=== PATIENT | female | born 1950 | race Caucasian/White ===

== ENCOUNTER 2018-08-14 16:08 | Inpatient (IN) | payer MEDICARE, BC ==
[~2018-08-14] VITALS: Ht 160 cm; Wt 68.0 kg
[2018-08-14] VITALS (7 sets, daily range): BP systolic 139–171; BP diastolic 79–93
[~2018-08-14 16:08] MED LIST: HYDR-2966 PO; MUPI22OI28 TP; THYR60TA25 PO; [UNRECOGNIZED DRUG - OTHER]
[2018-08-14] MEDS ORDERED: ENT KIT ONE (16:40)
[2018-08-14 17:15] LABS: PLATELET COUNT, AUTOMATED 293 K/uL (150-450)
[2018-08-14 17:23] LABS: INR 1.02
--- NOTE | 2018-08-14 17:33 | ER Report ---
History and Physical Time Seen By MD: 16:00 Hx. of Stated Complaint: patient reports nosebleed since 6am. Patient reports blood pressure being very erratic. Went to an ENT but they did not do anything becuase of high blood pressure HPI/ROS CHIEF COMPLAINT: Nosebleed HISTORY OF PRESENT ILLNESS: 68 -year-old female comes emergency room with an nosebleed patient did have episodic nosebleeds for the last 6 weeks comes and goes primarily with exertion she has history of hypertension was seen at ENT was unable to get complete resolution she's had several nosebleeds this morning no pain no trauma to the nose no additional complaints REVIEW OF SYSTEMS: Respiratory: No cough, no dyspnea. Cardiovascular: No chest pain, no palpitations. Gastrointestinal: No vomiting, no abdominal pain. Musculoskeletal: No back pain. Remainder of the 14 system rev: Yes Allergies: Uncoded Allergies: antibiotics (Allergy, Mild, 11/24/13) Home Meds Active Scripts Mupirocin (MUPIROCIN) 22 Gm Oint...g., 1 BARTOLO TP BID for 14 Days, #1 TUBE 1 Refill Prov:DARYL HAIR PA-C 06/22/18 Reported Medications [homeopathics] No Conflict Check 11/24/13 Thyroid,Pork (ARMOUR THYROID) 60 Mg Tablet, 75 MG PO 11/24/13 Reviewed Nurses Notes: Yes Old Medical Records Reviewed: Yes Hx Smoking: No Smoking Status: Never Smoker Hx Substance Use Disorder: No Hx Alcohol Use: No Constitutional Vital Sign - Last 24 Hours 08/14/18 16:13 Temp 98.1 Pulse 97 Resp 16 B/P (MAP) 164/93 Pulse Ox 93 O2 Delivery Room Air Physical Exam General Appearance: The patient is alert, has no immediate need for airway protection and no current signs of toxicity. [ ] Eyes: Pupils equal and round no injection. Respiratory: Chest is non tender, lungs are clear to auscultation. Cardiac: regular rate and rhythm [ ] Gastrointestinal: Abdomen is soft and non tender, no masses, bowel sounds normal. Musculoskeletal: Neck: Neck is supple and non tender. Extremities have full range of motion and are non tender. Skin: No rashes or lesions. Nose examination patient has dried blood around the right naris but no active bleeding no other exam findings of note DIFFERENTIAL DIAGNOSIS: After history and physical exam differential diagnosis was considered for nosebleed epistaxis 6 Medical Decision Making Data Points Result Diagram: 08/14/18 1654 08/14/18 1654 Laboratory Hematology Test 08/14/18 16:54 Red Blood Count 2.88 M/uL (4.17-5.56) Mean Corpuscular Volume 82.2 fL (80.0-96.0) Mean Corpuscular Hemoglobin 26.1 pg (26.0-33.0) Mean Corpuscular Hemoglobin Concent 31.8 g/dL (32.0-36.0) Red Cell Distribution Width 16.7 % (11.5-14.5) Mean Platelet Volume 8.5 fL (7.2-11.1) Neutrophils (%) (Auto) 75.4 % (39.4-72.5) Lymphocytes (%) (Auto) 17.1 % (17.6-49.6) Monocytes (%) (Auto) 5.8 % (4.1-12.4) Eosinophils (%) (Auto) 0.4 % (0.4-6.7) Basophils (%) (Auto) 1.3 % (0.3-1.4) Nucleated RBC Relative Count (auto) 0.1 /100WBC Neutrophils # (Auto) 3.1 K/uL (2.0-7.4) Lymphocytes # (Auto) 0.7 K/uL (1.3-3.6) Monocytes # (Auto) 0.2 K/uL (0.3-1.0) Eosinophils # (Auto) 0.0 K/uL (0.0-0.5) Basophils # (Auto) 0.1 K/uL (0.0-0.1) Nucleated RBC Absolute Count (auto) 0.01 K/uL Prothrombin Time 13.4 seconds (12.0-14.4) Prothromb Time International Ratio 1.02 Activated Partial Thromboplast Time 28 seconds (23-35) Sodium Level 137 mmol/L (137-145) Potassium Level 4.5 mmol/L (3.5-5.0) Chloride Level 103 mmol/L (98-107) Carbon Dioxide Level 21 mmol/L (22-31) Blood Urea Nitrogen 8 mg/dl (7-18) Creatinine 1.10 mg/dl (0.52-1.04) Glomerular Filtration Rate Calc 49.1 Random Glucose 132 mg/dl (75-110) Calcium Level 9.8 mg/dl (8.4-10.2) Total Bilirubin 0.7 mg/dl (0.2-1.3) Aspartate Amino Transf (AST/SGOT) 31 U/L (0-35) Alanine Aminotransferase (ALT/SGPT) 30 U/L (0-56) Alkaline Phosphatase 90 U/L (0-126) Total Protein 6.5 g/dl (6.3-8.2) Albumin 3.9 g/dl (3.5-5.0) Chemistry Test 08/14/18 16:54 White Blood Count 4.1 k/uL (4.5-11.0) Red Blood Count 2.88 M/uL (4.17-5.56) Hemoglobin 7.5 g/dL (12.0-16.0) Hematocrit 23.7 % (34.0-47.0) Mean Corpuscular Volume 82.2 fL (80.0-96.0) Mean Corpuscular Hemoglobin 26.1 pg (26.0-33.0) Mean Corpuscular Hemoglobin Concent 31.8 g/dL (32.0-36.0) Red Cell Distribution Width 16.7 % (11.5-14.5) Platelet Count 293 K/uL (150-450) Mean Platelet Volume 8.5 fL (7.2-11.1) Neutrophils (%) (Auto) 75.4 % (39.4-72.5) Lymphocytes (%) (Auto) 17.1 % (17.6-49.6) Monocytes (%) (Auto) 5.8 % (4.1-12.4) Eosinophils (%) (Auto) 0.4 % (0.4-6.7) Basophils (%) (Auto) 1.3 % (0.3-1.4) Nucleated RBC Relative Count (auto) 0.1 /100WBC Neutrophils # (Auto) 3.1 K/uL (2.0-7.4) Lymphocytes # (Auto) 0.7 K/uL (1.3-3.6) Monocytes # (Auto) 0.2 K/uL (0.3-1.0) Eosinophils # (Auto) 0.0 K/uL (0.0-0.5) Basophils # (Auto) 0.1 K/uL (0.0-0.1) Nucleated RBC Absolute Count (auto) 0.01 K/uL Prothrombin Time 13.4 seconds (12.0-14.4) Prothromb Time International Ratio 1.02 Activated Partial Thromboplast Time 28 seconds (23-35) Glomerular Filtration Rate Calc 49.1 Calcium Level 9.8 mg/dl (8.4-10.2) Total Bilirubin 0.7 mg/dl (0.2-1.3) Aspartate Amino Transf (AST/SGOT) 31 U/L (0-35) Alanine Aminotransferase (ALT/SGPT) 30 U/L (0-56) Alkaline Phosphatase 90 U/L (0-126) Total Protein 6.5 g/dl (6.3-8.2) Albumin 3.9 g/dl (3.5-5.0) Coagulation Test 08/14/18 16:54 Prothrombin Time 13.4 seconds Prothromb Time International Ratio 1.02 Activated Partial Thromboplast Time 28 seconds ED Course/Re-evaluation ED Course Patient was able to obtain hemostasis with a direct pressure and Afrin however her hemoglobin came back markedly low at 7.5 she'll be admitted and transfused 2 units of PRBCs and a consult by ENT Decision to Disposition Date: Aug 14, 2018 Decision to Disposition Time: 17:30 Depart Departure Latest Vital Signs Vital Signs Date Time Temp Pulse Resp B/P (MAP) Pulse Ox O2 Delivery O2 Flow Rate FiO2 08/14/18 16:13 98.1 97 16 164/93 93 Room Air Impression: Primary Impression: Anterior epistaxis Additional Impression: Anemia Condition: Improved Disposition: Admitted from ER Problem Qualifiers ISRAEL BLISS MD Aug 14, 2018 17:33
[2018-08-14] MEDS ORDERED: NS(*) 0.9% 1000 ML BAG 1,000 ML IV PRN (20:15)
[2018-08-14] MEDS ORDERED: ACETAMINOPHEN 325 MG TAB PO PRN (20:15)
[2018-08-14] MEDS ORDERED: FLUSH 10 ML SYR IVP PRN (20:15)
--- NOTE | 2018-08-14 20:32 | History & Physical ---
History of Present Illness Chief Complaint Nose bleeds History of Present Illness 68yo female with PMHx significant for elevated BPs, recurrent epistaxis. She states she has had recurring nosebleeds involving the right nares at least once a week for the past 6-7 weeks. Most will last for several hours and be difficult to stop. Over the past week she has had at least three episodes. She has started to have some orthostatic symptoms with dizziness/lightheadedness when she gets up. She has also been noted to have elevated BPs. She reports she has been treated for HTN in the past, but either the meds "didn't work" or she did not tolerate them and she would stop. She has been trying acupuncture for her HTN and feels it has been somewhat effective. She was evaluated in the ER today for a recurrent nose bleed and found to be anemic. She denies any other bleeding sites. No bloody stools. She has noted an occasional dark stool following a nose bleed. History Problems: (1) Hypothyroidism Status: Chronic (2) Recurrent epistaxis Status: Chronic (3) Hypertension Status: Chronic (4) History of hysterectomy Status: Resolved Home Meds Active Scripts Mupirocin (MUPIROCIN) 22 Gm Oint...g., 1 BARTOLO TP BID for 14 Days, #1 TUBE 1 Refill Prov:DARYL HAIR PA-C 06/22/18 Reported Medications [homeopathics] No Conflict Check 11/24/13 Thyroid,Pork (ARMOUR THYROID) 60 Mg Tablet, 75 MG PO 11/24/13 Allergies: Uncoded Allergies: antibiotics (Allergy, Mild, 11/24/13) Patient History: Cardiac disorder FATHER FH: CHF (congestive heart failure) MOTHER FH: kidney disease MOTHER FHx: lung disease FATHER Hx Smoking: No Smoking Status: Never Smoker Hx Alcohol Use: No Hx Substance Use Disorder: No Social Drug Use: Never Review of Systems Constitutional: No Fever, No Chills Neurological: Weakness, Dizziness; No Syncope Eyes: No Loss of Vision ENT: No Hearing Loss Cardiovascular: No Chest Pain, No Palpitations Respiratory: No Shortness of Breath, No Cough Gastrointestinal: No Nausea, No Vomiting, No Hematemesis, No Hematochezia, No Abdominal Pain Exam Vital Signs Vital Signs Date Time Temp Pulse Resp B/P (MAP) Pulse Ox O2 Delivery O2 Flow Rate FiO2 08/14/18 19:50 97.7 166/86 (112) 08/14/18 16:13 97 16 93 Room Air General Appearance: Alert, Awake Neuro: No Gross deficits Eyes: PERRLA ENT: Oropharynx Clear, Other (left nares clear with unremarkable mucosa/right nares with dried blood and some adherent clot on anterior septal area) Neck: No Masses Cardiovascular: Regular Rate and Rhythm Respiratory: Clear to Auscultation GI: Abd Soft and Non-Tender Extremities: Warm, Perfused Integumentary: Skin Intact without Lesion / Mass Psych: Alert & Oriented X3 Medical Decision Making Data Points Result Diagram: 08/14/18 1654 08/14/18 1654 Item Value Date Time Albumin 3.9 g/dl 08/14/18 1654 Total Protein 6.5 g/dl 08/14/18 1654 Alkaline Phosphatase 90 U/L 08/14/18 1654 Alanine Aminotransferase (ALT/SGPT) 30 U/L 08/14/18 1654 Aspartate Amino Transf (AST/SGOT) 31 U/L 08/14/18 1654 Total Bilirubin 0.7 mg/dl 08/14/18 1654 Calcium Level 9.8 mg/dl 08/14/18 1654 Activated Partial Thromboplast Time 28 seconds 08/14/18 1654 Prothromb Time International Ratio 1.02 08/14/18 1654 Prothrombin Time 13.4 seconds 08/14/18 1654 Assessment and Plan Problems: (1) Anemia Status: Acute Assessment & Plan: She appears to have symptomatic anemia, most likely due to recurrent epistaxis. We discussed possible transfusion of 2 units of PRBC and she is willing to proceed as she has been fairly symptomatic, especially these past few days. Will monitor counts. (2) Recurrent epistaxis Status: Chronic Assessment & Plan: At present, it appears sheh as stopped with conservative treatment done in ER. Will watch closely. May need to have ENT see her if recurrent/refractory bleeding. (3) Hypertension Status: Chronic Assessment & Plan: It sounds like she has been hypertensive for many years. She has been resistant or intolerant of medications in the past. She is interested in trying treatment again if she has sustained elevation of her BP. (4) Hypothyroidism Status: Chronic Assessment & Plan: She has not been on treatment for at least several months. Will check TSH. Venous Thromboembolism Antithrombotics Is Pt On Any Antithrombotics?: No (current bleeding) Exam Sepsis Risk: No Definite Risk GARY MARQUES MD Aug 14, 2018 20:32
[2018-08-14] MEDS ORDERED: METOPROLOL TART 50 MG TAB PO ONE (22:25)
[2018-08-14] MEDS ORDERED: PHENYLEPHRINE 0.5% 15 ML BTL ONE (23:24)
[2018-08-15 01:06] VITALS: BP 149/90
[2018-08-15 01:21] VITALS: BP 156/86
[2018-08-15 02:43] VITALS: BP 151/110
[2018-08-15 04:05] VITALS: BP 157/90
[2018-08-15 06:25] LABS: PLATELET COUNT, AUTOMATED 236 K/uL (150-450)
[2018-08-15 07:25] VITALS: BP 142/84
[2018-08-15] MEDS ORDERED: METOPROLOL TART 50 MG TAB PO SCH (09:00)
[2018-08-15] MEDS ORDERED: METO25TA93 PO (09:34)
--- NOTE | 2018-08-15 09:38 | Hospitalist Depart ---
Discharge Summary Reason for Hosp/Final Diag: (1) Anemia Status: Acute Hospital Course & Plan: She did present with symptomatic anemia, which is likely secondary to recurrent nose bleeds. She received 2 units of red cells, and her HGB responded appropriately. (2) Recurrent epistaxis Status: Chronic Hospital Course & Plan: She is scheduled to follow up with Dr. Marrero next week. (3) Hypertension Status: Chronic Hospital Course & Plan: She has been started on low dose metoprolol. (4) Hypothyroidism Status: Chronic Hospital Course & Plan: She has not been on treatment for at least several months. A TSH is pending. Departure Latest Vital Signs Vital Signs 08/15/18 08/15/18 02:43 07:25 Temp 98.0 Pulse 60 Resp 14 B/P (MAP) 142/84 (103) O2 Flow Rate 0.5 Weight (Pounds): 150 Result Diagram: 08/15/18 0557 08/15/18 0557 Condition: Improved Discharge: Home, Self Care Discharge Instructions Home Meds Active Scripts Metoprolol Tartrate (METOPROLOL TARTRATE) 25 Mg Tablet, 25 MG PO BID, #60 TAB Prov:YONATAN GARCIA DO 08/15/18 Mupirocin (MUPIROCIN) 22 Gm Oint...g., 1 BARTOLO TP BID for 14 Days, #1 TUBE 1 Refill Prov:DARYL HAIR PA-C 06/22/18 Reported Medications [homeopathics] No Conflict Check 11/24/13 Thyroid,Pork (ARMOUR THYROID) 60 Mg Tablet, 75 MG PO 11/24/13 Diet: Regular Activity: As Tolerated Copies to: AISLINN FLORES DO; ERNESTO MARRERO JR, MD ; Venous Thromboembolism Antithrombotics Is Pt On Any Antithrombotics?: No (current bleeding) Problem Qualifiers (1) Hypertension: Hypertension type: essential hypertension Qualified Codes: I10 - Essential (primary) hypertension YONATAN GARCIA DO Aug 15, 2018 09:38
== END 2018-08-15 12:33 | disposition home or self-care (01) | DRG 812 ==
LOC: ER 16:29 → MED 19:02 → UNDOADMIN 19:02
PROVIDERS: ADMIT Internal Medicine; ATTEND Internal Medicine
PROC: 30233N1 Transfusion of Nonautologous Red Blood Cells into Peripheral Vein, Percutaneous Approach (ICD-10-PCS; principal; 2018-08-14)
DX: D62 Acute posthemorrhagic anemia (principal); R04.0 Epistaxis; I10 Essential (primary) hypertension; E03.9 Hypothyroidism, unspecified; Z88.1 Allergy status to other antibiotic agents; Z90.710 Acquired absence of both cervix and uterus
CPT/HCPCS: 36415; 82040; 82247; 82310; 82374; 82435; 82565; 82947; 84075; 84132; 84155; 84295; 84443; 84450; 84460; 84520; 85025; 85610; 85730; 86850; 86900; 86901; 86920; 99284; J7030; P9016

== ENCOUNTER → 2018-08-18 | Outpatient (CLI) | payer MEDICARE, BC ==
[~2018-08-18] MED LIST changes: +METO25TA93 PO
--- NOTE | 2018-08-18 08:33 | RADIOLOGY IMAGING REPORT ---
FACILITY: [facility] [place] PATIENT NAME: Otilia Lazo : 1950 MR: [id number] V: [id number] EXAM DATE: ORDERING PHYSICIAN: AISLINN FLORES TECHNOLOGIST: Location: [facility] Patient: Otilia Lazo : 1950 Visit/Account:[id number] Date of Sevice: 08/18/2018 Exam type: CHEST PA LAT History: Labile hypertension, shortness of breath, abnormal lung sounds Comparison: None. Findings: The lower half of the right lung does not appear aerated. There are air-containing structure seen wi thin the soft tissue density over the right lower thorax suggesting a bowel contents. This finding m ay be related to a right diaphragmatic hernia, right diaphragmatic paralysis, prior right lung surger y with lobectomy. The cardiac silhouette is difficult to assess due to above findings although is gr ossly unremarkable in size. An ovoid soft tissue density projects over the medial aspect of the left lower thorax which may be related to a hiatal hernia or mass lesion. Remainder of the left lung naz ears well aerated. IMPRESSION: 1. Abnormal appearance to the right lower thorax as detailed above. Additional clinical history and /or CT of the thorax is recommended for further evaluation since are no prior studies available for c omparison Report Dictated By: Bobbi Ivey MD at 08/18/2018 8:22 AM Report E-Signed By: Bobbi Ivey MD at 08/18/2018 8:26 AM WSN:[id number]
== END ==
LOC: LAB 07:34
PROVIDERS: ATTEND Family Medicine
DX: R06.02 Shortness of breath (principal); E03.9 Hypothyroidism, unspecified; E78.5 Hyperlipidemia, unspecified; I10 Essential (primary) hypertension; D64.9 Anemia, unspecified
CPT/HCPCS: 36415; 71046; 82040; 82247; 82310; 82374; 82435; 82465; 82565; 82947; 83718; 84075; 84132; 84155; 84295; 84443; 84450; 84460; 84478; 84520; 85027

== ENCOUNTER → 2018-08-21 | Outpatient (CLI) | payer MEDICARE, BC | LOC: RAD 01:32 | PROVIDERS: ATTEND Family Medicine | DX: I36.1 Nonrheumatic tricuspid (valve) insufficiency (principal) | CPT/HCPCS: 93306 ==

== ENCOUNTER → 2018-08-24 | Outpatient (CLI) | payer MEDICARE, BC ==
--- NOTE | 2018-08-24 17:02 | RADIOLOGY IMAGING REPORT ---
FACILITY: [facility] PATIENT NAME: Otilia Lazo : 1950 MR: [id number] V: [id number] EXAM DATE: ORDERING PHYSICIAN: AISLINN FLORES TECHNOLOGIST: Location: [facility] [place] Patient: Otilia Lazo : 1950 Visit/Account:[id number] Date of Sevice: 08/24/2018 CT CHEST W/O CONTRAST HISTORY: Diaphragmatic hernia. Abnormal lung sounds. Shortness of breath. TECHNIQUE: CT chest without intravenous contrast. One of the following dose optimization techniques was utilized in the performance of this exam: Autom ated exposure control; adjustment of the mA and/or kV according to the patient's size; or use of an i terative reconstruction technique. Specific details can be referenced in the facility's radiology C T exam operational policy. CONTRAST: None. COMPARISON: None. FINDINGS: Mild atherosclerosis within the thoracic aorta. Prominence of the main pulmonary artery measuring up to 3.4 cm which is nonspecific however can be seen in the setting of pulmonary arterial hypertension. Heart/vessels: Negative. Mediastinum: Large central diaphragmatic hernia arising from the midline (coronal image 45), extendi ng into the right chest. This contains most of the stomach, artery:, And mesenteric fat. Lymph nodes: Negative. Lungs/pleura: Trace bilateral pleural effusions. Passive atelectasis of the right lower lobe which a ppears to be completely collapsed. There is at least partial collapse of the right middle lobe which may also be completely atelectatic. Visualized upper abdomen: Moderate to advanced fatty replacement of the visualized pancreas. Bones/soft tissues: Mild exaggerated kyphosis IMPRESSION: 1. Large central diaphragmatic hernia arising from the midline with abdominal contents herniating int o the right lower chest, as above. There is apparent associated complete atelectasis of the right low er lobe and complete or near complete atelectasis of the right middle lobe. 2. Nonspecific trace bilateral pleural effusions. 3. Additional incidental/chronic findings, as above. Report Dictated By: Jayden Prieto MD at 08/24/2018 4:48 PM Report E-Signed By: Jayden Prieto MD at 08/24/2018 4:55 PM WSN:[email or web address]
== END ==
LOC: CT 00:57
PROVIDERS: ATTEND Family Medicine
DX: K44.9 Diaphragmatic hernia without obstruction or gangrene (principal); J90 Pleural effusion, not elsewhere classified
CPT/HCPCS: 71250

== ENCOUNTER → 2018-09-17 | Outpatient (CLI) | payer MEDICARE, BC | LOC: RESP 19:45 | PROVIDERS: ATTEND Family Medicine | DX: G47.33 Obstructive sleep apnea (adult) (pediatric) (principal); G47.36 Sleep related hypoventilation in conditions classified elsewhere ==